=== PATIENT | male | born 1960 | race Caucasian/White ===

== ENCOUNTER 2021-08-30 02:09 | Emergency (ER) | payer MEDICARE, OTHER, SELFPAY ==
[2021-08-30 02:16] VITALS: BP 165/81; PULSE 61; RESP 16; TEMP 35.8; O2SAT 100
[2021-08-30] MEDS: diazePAM (*CRX) 5 MG TABLET PO (03:22)
[2021-08-30 03:39] LABS: Basophils Absolute Auto 0.1 K/mm3 (0.0-0.1); Basophils Percent Auto 1.5 % (0.2-1.2); Eosinophils Percent Auto 0.4 % (0-4.4); Hematocrit 42.8 % (42.0-52.0); Hemoglobin 14.9 g/dL (14.0-18.0); Immature Granulocyte Absolute 0.04 K/mm3 (0.00-0.031); Immature Granulocyte Percent A 0.6 % (0-0.5); Immature Platelet Fraction Pct 7.3 % (0.9-11.2); Lymphocytes Absolute Auto 0.71 K/mm3 (0.9-3.2); Lymphocytes Percent Auto 10.5 % (18.3-44.2); Mean Corpuscular HGB Conc 34.8 g/dl (32-36); Mean Corpuscular Hemoglobin 32.3 pg (26-34); Mean Corpuscular Volume 92.6 fl (80-100); Mean Platelet Volume 11.2 fl (7.4-10.4); Monocytes Absolute Auto 0.8 K/mm3 (0.1-0.6); Monocytes Percent Auto 12.5 % (2.6-8.5); Neutrophils Percent Auto 74.5 % (45.5-73.1); Platelet Count Result 129 k/mm3 (150-375); Red Blood Count 4.62 M/mm3 (4.6-6.20); Red Cell Distribution Width 13.5 % (11.5-14.5); White Blood Count 6.7 K/mm3 (4.5-10.0)
[2021-08-30 03:42] LABS: Anion Gap 6 mmol/L (8-16); Blood Urea Nitrogen 16 mg/dL (9-20); Calcium 8.7 mg/dL (8.4-10.2); Carbon Dioxide 25 mmol/L (22-30); Chloride 104 mmol/L (98-107); Estimated CRCL calculation 80 ml/min; Estimated Glomerular Filt Rate > 60; Glucose 166 mg/dL (65-110); Magnesium 1.9 mg/dL (1.6-2.3); Potassium 3.8 mmol/L (3.4-5.0); Sodium 135 mmol/L (137-145)
[2021-08-30 04:20] VITALS: BP 152/85; PULSE 67; RESP 18; O2SAT 100
--- NOTE | 2021-08-30 04:23 | ED.NECK ---
HPI - Neck Pain/Injury General Chief Complaint: Neck Pain/Injury Stated Complaint: neck pain Time Seen by Provider: 08/30/21 02:24 History of Present Illness HPI Narrative: 61yoM h/o MM p/w L neck pain when he woke up this AM, pain with movement of neck. Only took some tylenol at home this AM complaint: neck pain Place: home Quality: dull Duration: constant Relieving factors: medication OTC/prescribed Exacerbating factors: movement of neck Associated symptoms: none Treatments prior to arrival: acetaminophen Related Data Home Medications Medication Instructions Recorded Confirmed gabapentin 600 mg tablet 600 mg PO BID 02/14/19 03/21/21 lenalidomide 10 mg capsule 10 mg PO DAILY 02/14/19 03/21/21 cholestyramine-aspartame 4 gram PO DAILY g 09/14/20 03/21/21 oral powder wepqfadk-lun-clbny acid 300 1 tablet PO DAILY 09/14/20 03/21/21 mcg-lycopene 600 mcg-lutein 300 mcg tablet Allergies Allergy/AdvReac Type Severity Reaction Status Date / Time No Known Drug Allergies Allergy Unknown Unknown Verified 03/21/21 09:29 Review of Systems Review of Systems: All systems reviewed & are unremarkable except as noted in HPI and below PMFSH Past Medical History Medical History (Updated 08/30/21 @ 05:18 by Talia Moss MD) Multiple myeloma Screening for colon cancer Family History Family History Father Patient's father is in good health Sibling Patient's brother is in good health Family history of elevated blood lipids Mother Acute myocardial infarction, Onset Age: 72 Patient's mother is Social History Social History Smoking status: Former smoker Tobacco type: cigars Second hand tobacco smoke exposure: Yes Smoking end date: 04/20/09 Alcohol intake: former Exam Narrative: EXAMINATION OF ORGAN SYSTEMS/BODY AREAS: Constitutional: Vital signs per nursing GENERAL:[No acute distress, non-toxic appearing.] HEAD: Normal with no signs of head trauma. EYES: EOMI, conjunctiva normal NECK: TTP L SCM, no swelling/TTP around IJ , pain with rotating right LUNGS: Nonlabored breathing. HEART: [Regular rate and rhythm] ABD: Nondistended EXT: Normal range of motion, no swelling SKIN: [No rashes or lesions.] NEURO: [Alert and oriented x 3. No gross focal sensory or strength deficits.] PSYCH: Normal affect Course Course Emergency Course: 61-year-old male with history of multiple myeloma presents with left-sided neck pain when he woke up this morning, vital signs stable, exam shows tenderness palpation of the left neck and pain on rotation, differential includes most likely muscle spasm from sleeping on it wrong versus very unlikely DVT without any swelling or tenderness around the veins of his upper extremity or neck, and electrolyte abnormalities. Labs are normal, patient is given Valium for muscle spasm, on reevaluation he is feeling much better, range of motion is improved, he is stable for discharge home with follow-up with his primary care doctor and he is given a prescription for muscle relaxants. He can return for any further issues. Vital Signs Vital signs: Vital Signs Temperature 96.5 F L 08/30/21 02:16 Pulse Rate 61 08/30/21 02:16 Respiratory Rate 16 08/30/21 02:16 Blood Pressure 165/81 H 08/30/21 02:16 Pulse Oximetry 100 08/30/21 02:16 Temperature 96.5 F L 08/30/21 02:16 Pulse Rate 67 08/30/21 04:20 Respiratory Rate 18 08/30/21 04:20 Blood Pressure 152/85 H 08/30/21 04:20 Pulse Oximetry 100 08/30/21 04:20 MDM - Neck Pain/Injury Lab Data Result diagrams: 08/30/21 03:27 08/30/21 03:27 Labs: Lab Results 08/30/21 08/30/21 Range/Units 03:27 03:27 WBC 6.7 (4.5-10.0) K/mm3 RBC 4.62 (4.6-6.20) M/mm3 Hgb 14.9 (14.0-18.0) g/dL Hct 42.8 (42.0-52.0) % MCV 92.6 (80-100) fl MCH 32.3 (2
== END 2021-08-30 04:20 | disposition home or self-care (01) ==
PROVIDERS: Emergency Provider Emergency Medicine; PCP Internal Medicine
DX: M62.838 Other muscle spasm (principal); S16.1XXA Strain of muscle, fascia and tendon at neck level, initial encounter; C90.00 Multiple myeloma not having achieved remission; Z87.891 Personal history of nicotine dependence; X58.XXXA Exposure to other specified factors, initial encounter
CPT/HCPCS: 36415; 80048; 83735; 85025; 85055; 99283; A9270

== ENCOUNTER 2021-11-30 16:31 | Inpatient (IN) | payer MEDICARE, OTHER, SELFPAY ==
[2021-11-30] VITALS (23 sets, daily range): BP systolic 86–112; BP diastolic 53–91; PULSE 66–100; RESP 13–27; TEMP 36–36.8; O2SAT 94–98; BMI 31.6; BMI 31.4
--- NOTE | ~2021-11-30 | US_ITS ---
EXAMINATION: US venous doppler [facility] DATE: 12/04/2021 15:18 INDICATION: Lower limb edema. TECHNIQUE: Grayscale ultrasound images without and with compression and Doppler ultrasound images of the bilateral lower extremity veins were obtained. COMPARISON: None. FINDINGS: The visualized portions of right common femoral vein, profunda (deep) femoral vein, femoral vein, pop liteal vein, peroneal veins, posterior tibial veins, and greater saphenous vein outflow are patent. The visualized portions of left common femoral vein, profunda femoral vein, femoral vein, popliteal v ein, peroneal veins, posterior tibial veins, and greater saphenous vein outflow are patent. IMPRESSION: 1. No deep venous thrombosis. Reviewed, dictated and finalized at location A.
--- NOTE | ~2021-11-30 | CT_ITS ---
EXAMINATION: CT abdomen pelvis w con DATE: 11/30/2021 18:42 INDICATION: Nausea, vomiting with diarrhea. TECHNIQUE: Computed tomography (CT) of the abdomen and pelvis was performed with 100 cc Omnipaque 350 intravenous contrast. The dose-length product was 666.92 mGy-cm. Automated exposure control and iter ative reconstruction technique were employed. COMPARISON: None. FINDINGS: Heart size normal. There is dependent atelectasis. Trace right pleural effusion. Heart size normal. Small amount of ascites. There is diffuse abnormal thickening of the colon and rectum, most severe at the cecum, consistent with severe colitis, most likely infectious. There is ascites. There is mild bladder wall thickening, possibly due to underdistention. No small bowel dilation. The liver, spleen, pancreas, adrenal glands and right kidney are unremarkable. There is a small cyst of the left kidney. There are gallstones. There are mottled lytic lesions throughout the spine, ribs, pelvis and sacrum, suspicious for metastatic disease versus myeloma. IMPRESSION: 1. Diffuse severe thickening of the colon with mucosal edema/enhancement, consistent with colitis, mo st likely infectious. 2: Trace right pleural effusion. Small amount of ascites. 3: Innumerable lytic lesions throughout the visualized osseous structures, suspicious for metastatic disease versus myeloma. Correlate for history of malignancy. 4: Cholelithiasis. Reviewed, dictated and finalized at location A. IMPRESSION: 1. Diffuse severe thickening of the colon with mucosal edema/enhancement, consi stent with colitis, most likely infectious. 2: Trace right pleural effusion. Small amount of ascites. 3: Innumerable lytic lesions throughout the visualized osseous structures, susp icious for metastatic disease versus myeloma. Correlate for history of malignan cy. 4: Cholelithiasis.
[2021-11-30 17:50] LABS: Basophils Absolute Auto 0.1 K/mm3 (0.0-0.1); Basophils Percent Auto 0.3 % (0.2-1.2); Eosinophils Absolute Auto 0.5 K/mm3 (0-0.3); Eosinophils Percent Auto 3.6 % (0-4.4); Hematocrit 50.4 % (42.0-52.0); Hemoglobin 17.6 g/dL (14.0-18.0); Immature Granulocyte Absolute 0.13 K/mm3 (0.00-0.031); Immature Granulocyte Percent A 0.9 % (0-0.5); Lymphocytes Absolute Auto 0.63 K/mm3 (0.9-3.2); Lymphocytes Percent Auto 4.3 % (18.3-44.2); Mean Corpuscular HGB Conc 34.9 g/dl (32-36); Mean Corpuscular Hemoglobin 31.3 pg (26-34); Mean Corpuscular Volume 89.7 fl (80-100); Mean Platelet Volume 10.7 fl (7.4-10.4); Monocytes Absolute Auto 2.2 K/mm3 (0.1-0.6); Monocytes Percent Auto 15.1 % (2.6-8.5); Neutrophils Percent Auto 75.8 % (45.5-73.1); Platelet Count Result 204 k/mm3 (150-375); Red Blood Count 5.62 M/mm3 (4.6-6.20); Red Cell Distribution Width 13.2 % (11.5-14.5); White Blood Count 14.5 K/mm3 (4.5-10.0)
--- NOTE | 2021-11-30 17:50 | ED.NAVMDI ---
HPI - Nausea/Vomiting/Diarrhea General Chief complaint: Nausea/Vomiting/Diarrhea Stated complaint: diarrhea, vomiting, chills Time Seen by Provider: 11/30/21 17:46 Source: patient Mode of arrival: ambulatory Limitations: no limitations History of Present Illness HPI Narrative: 61 years old white female presented to the ED with right lower quadrant pain and diarrhea started 10 days ago. History of multiple myeloma, patient also complaining of nausea and vomiting once yesterday and another 1 today. Plus chills and clammy skin. Patient is not vaccinated for COVID because he does not believe in it Related Data Home Medications Medication Instructions Recorded Confirmed gabapentin 600 mg tablet 600 mg PO BID 02/14/19 03/21/21 lenalidomide 10 mg capsule 10 mg PO DAILY 02/14/19 03/21/21 (Revlimid) cholestyramine-aspartame 4 gram PO DAILY 09/14/20 03/21/21 oral powder vzesfmqk-mwz-ueaua acid 300 1 tablet PO DAILY 09/14/20 03/21/21 mcg-lycopene 600 mcg-lutein 300 mcg tablet (Centrum Silver Men) Allergies Allergy/AdvReac Type Severity Reaction Status Date / Time No Known Drug Allergies Allergy Unknown Unknown Verified 09/05/21 14:04 Review of Systems Review of Systems: All systems reviewed & are unremarkable except as noted in HPI and below PMFSH Past Medical History Medical History Multiple myeloma Screening for colon cancer Family History Family History Father Patient's father is in good health Sibling Patient's brother is in good health Family history of elevated blood lipids Mother Acute myocardial infarction, Onset Age: 72 Patient's mother is Social History Social History Smoking status: Former smoker Tobacco type: cigars Second hand tobacco smoke exposure: Yes Smoking end date: 04/20/09 Alcohol intake: former Exam Narrative: General appearance: Well-developed, well-nourished Skin: Normal color Head: Normocephalic, nontraumatic Eyes: Clear conjunctiva ENT: Oropharynx normal, ears normal, nose normal Neck: Supple, nontender Chest and respiratory: Airway patent, no respiratory distress, no accessory muscle use Heart: Regular rate/rhythm Abdomen: Soft, right lower quadrant tenderness, hyperactive bowel sounds no organomegaly, quiet bowel sounds Vascular: Normal peripheral pulses, normal capillary refill. Musculoskeletal: Normal range of motion, nontender back Neurologic: Alert and oriented ?3, IMMUNOLOGY SPECIALIST is normal as tested, no gross motor deficit Course Vital Signs Vital signs: Vital Signs Temperature 36.8 C 11/30/21 16:33 Pulse Rate 95 11/30/21 16:33 Respiratory Rate 14 11/30/21 16:33 Blood Pressure 96/79 L 11/30/21 16:33 Pulse Oximetry 97 11/30/21 16:33 Oxygen Delivery Room Air 11/30/21 16:33 Temperature 36.8 C 11/30/21 16:33 Pulse Rate 90 11/30/21 17:48 Respiratory Rate 21 H 11/30/21 17:48 Blood Pressure 104/91 H 11/30/21 17:47 Pulse Oximetry 95 11/30/21 17:45 Oxygen Delivery Room Air 11/30/21 16:33 MDM - Nausea/Vomiting/Diarrhea Differential Diagnosis Differential diagnosis: Likely clostridium difficile infection and dehydration Lab Data Result diagrams: 11/30/21 17:42 11/30/21 17:43 Labs: Lab Results 11/30/21 11/30/21 Range/Units 17:42 17:43 WBC Pending RBC Pending Hgb Pending Hct Pending MCV Pending MCH Pending MCHC Pending RDW Pending Plt Count Pending MPV Pending Immature Gran % (Auto)
[2021-11-30 17:59] LABS: Alanine Aminotransferase 37 U/L (6-50); Albumin Level 3.9 g/dL (3.5-5.1); Alkaline Phosphatase 97 U/L (38-126); Anion Gap 12 mmol/L (8-16); Aspartate Amino Transferase 30 U/L (17-59); Bilirubin,Total 1.5 mg/dL (0.2-1.3); Blood Urea Nitrogen 22 mg/dL (9-20); Calcium 8.8 mg/dL (8.4-10.2); Carbon Dioxide 30 mmol/L (22-30); Chloride 89 mmol/L (98-107); Estimated CRCL calculation 42 ml/min; Estimated Glomerular Filt Rate 41; Glucose 192 mg/dL (65-110); Lipase 31 U/L (23-300); Potassium 3.1 mmol/L (3.4-5.0); Sodium 131 mmol/L (137-145)
[2021-11-30 17:59] LABS: Platelet Estimate Adequate (Adequate)
[2021-11-30 18:00] LABS: Ovalocytes 1+ (NORMAL)
[2021-11-30 18:01] LABS: Appearance Urine Clear (Clear); Bilirubin Urine Negative (Negative); Color Urine Yellow (Yellow); Glucose Urine UA Trace mg/dL (Negative); Ketones Urine Negative (Negative); Leukocyte Esterase Ur Negative LEU/UL (Negative); Nitrate Urine Negative (Negative); Protein Urine 1+ mg/dL (Negative); Urobilinogen Urine 0.2 mg/dL (<2.0); pH Urine 5.5 (5.0-9.0)
[2021-11-30 18:03] LABS: Add Urine Microscopic? YES; Blood Urine Trace-Intact (Negative)
[2021-11-30 18:05] LABS: Mucus Urine Rare /lpf; RBC Urine 0-2 /hpf (0-2); WBC Urine 0-3 /hpf
[2021-11-30] MEDS: ONDANSETRON INJ 4 MG/2 ML VIAL IV PUSH (19:00)
[2021-11-30] MEDS: MORPHINE SULFATE (*CRX) 4 MG/ML INJ IV PUSH (19:00)
[2021-11-30] MEDS: SODIUM CHLORIDE 0.9% IV 1,000 ML 999 ML IV CONT ×3 (19:02→20:20)
[2021-11-30 19:49] LABS: SARS-CoV-2 RNA PCR Negative
--- NOTE | 2021-11-30 20:03 | PM.IMHP ---
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 patient had been in to see his oncologist secondary to this he was stopped on immunosuppressant therapy and prescribed Imodium. However diarrhea continue patient has had a chills generalized malaise muscle aches and pains abdominal pain and bloating. Patient denies any cough, sputum production, any nausea, vomiting. preliminary workup was significant for CT of abdomen and pelvis: 1. Diffuse severe thickening of the colon with mucosal edema/enhancement, consistent with colitis, most likely infectious. 2:? Trace right pleural effusion. Small amount of ascites. 3: Innumerable lytic lesions throughout the visualized osseous structures, suspicious for metastatic disease versus myeloma. Correlate for history of malignancy. 4:? Cholelithiasis. chemistry panel was significant for sodium 131 potassium 3.1 chloride 86 creatinine 1.7 BUN 22 serology patient tested positive for C difficile and tested negative for COVID-19 Review of Systems Review of Systems: diarrhea for several days, abdominal bloating, muscle aches and pains, generalized malaise. Constitutional: Constitutional: Reports body ache(s), Reports chills, Reports fatigue, Denies fever(s), Reports lethargy, Reports malaise, Denies night sweats and Reports weakness Eyes: Eyes: Denies change in vision ENT: Denies dysphagia, Denies vertigo, Denies dizziness and Denies odynophagia Cardiovascular: Cardiovascular: Denies chest pain, Denies syncope, Denies pedal edema, Denies irregular heart rhythm, Denies lightheadedness, Denies palpitations and Denies dyspnea on exertion Respiratory: Respiratory: Denies chest congestion, Denies cough, Denies excessive phlegm production and Denies pain on inspiration Gastrointestinal: Gastrointestinal: Reports abdominal pain, Reports bloating, Denies dyspepsia, Denies heartburn, Reports diarrhea, Denies nausea and Denies vomiting Genitourinary: Genitourinary: Denies dysuria Musculoskeletal: Musculoskeletal: Denies back pain, Reports myalgias, Denies arthralgias and Denies joint swelling Integumentary/Breasts: Skin/Breast: Denies rash Neurologic: Denies focal weakness and Denies Sensory deficit (Neuro) Psychiatric: Psychiatric: Reports no additional psychiatric complaints and Reports as per HPI Endocrine: Endocrine: Denies cold intolerance, Denies fatigue, Denies flushing, Denies heat intolerance, Denies polyphagia, Denies polydipsia and Denies palpitations Hematologic/Lymphatic: Hematologic/Lymphatic: Reports no additional hematologic/lymphatic complaints and Reports as per HPI Allergic/Immunologic: Allergic/Immunologic: Reports no additional allergic/immunologic complaints and Reports as per HPI PMFSH Past Medical History Medical History Multiple myeloma Screening for colon cancer Family History Family History Father Patient's father is in good health Sibling Patient's brother is in good health Family history of elevated blood lipids Mother Acute myocardial infarction, Onset Age: 72 Patient's mother is Social History Social History Smoking status: Never smoker Tobacco type: cigars Second hand tobacco smoke exposure: No Smoking end date: 04/20/09 Alcohol intake: never Substance use: never Substance use type: does not use Spiritual care concerns: No Meds Home Medications and Allergies Home Medications Medication Instructions Recorded Confirmed Type jose
--- NOTE | 2021-11-30 20:17 | ECG_ITS ---
Measurements Intervals [place] Rate: 74 P: 47 [place]: 133 QRS: -36 QRSD: 106 T: 36 QT: 376 QTc: 420 Interpretive Statements SINUS RHYTHM WITH FREQUENT SUPRAVENTRICULAR PREMATURE COMPLEXES LEFT AXIS DEVIATION LOW QRS VOLTAGE IN PRECORDIAL LEADS PATTERN CONSISTENT WITH PULMONARY DISEASE MODERATE VOLTAGE CRITERIA FOR LVH, CONSIDER NORMAL VARIANT ABNORMAL ECG NO PREVIOUS ECG AVAILABLE FOR COMPARISON Electronically Signed On 12-01-2021 14:33:35 CDT by Denny Chahal M.D.
[2021-11-30 21:39] LABS: INR 1.2; Partial Thromboplastin Time 27.2 SECONDS (22.3-36.8)
[2021-11-30 21:42] LABS: Lactic Acid Reflex 1.1 mmol/L (0.7-2.0)
[2021-11-30 21:45] LABS: CRP 8.2 mg/dL (<1.0)
[2021-11-30] MEDS: SODIUM CHLORIDE 0.9% IV 1,000 ML 150 ML IV CONT (21:54)
[2021-11-30 23:45] LABS: IFOB Positive Control Positive; Immunochemical Fecal Occult Bl Positive (N)
[2021-12-01] VITALS: BP 105/70; PULSE 77; RESP 18; TEMP 35.8; O2SAT 97
[2021-12-01 00:27] LABS: Toxigenic C. Diff POSITIVE (NEGATIVE)
[2021-12-01] MEDS: metroNIDAZOLE 500 MG/ISO 100ML 500 MG/100 ML BAG 100 MG IVPB ×3 (00:43→17:27)
[2021-12-01 04:00] VITALS: BP 99/58; PULSE 65; RESP 18; TEMP 36.1; O2SAT 97
[2021-12-01 06:23] LABS: Hematocrit 44.6 % (42.0-52.0); Hemoglobin 15.1 g/dL (14.0-18.0); Mean Corpuscular HGB Conc 33.9 g/dl (32-36); Mean Corpuscular Hemoglobin 31.5 pg (26-34); Mean Corpuscular Volume 93.1 fl (80-100); Mean Platelet Volume 10.6 fl (7.4-10.4); Platelet Count Result 134 k/mm3 (150-375); Red Blood Count 4.79 M/mm3 (4.6-6.20); Red Cell Distribution Width 13.3 % (11.5-14.5); White Blood Count 10.6 K/mm3 (4.5-10.0)
[2021-12-01 06:29] LABS: Anion Gap 9 mmol/L (8-16); Blood Urea Nitrogen 19 mg/dL (9-20); Calcium 7.3 mg/dL (8.4-10.2); Carbon Dioxide 23 mmol/L (22-30); Chloride 101 mmol/L (98-107); Estimated CRCL calculation 58 ml/min; Estimated Glomerular Filt Rate > 60; Glucose 140 mg/dL (65-110); Potassium 2.9 mmol/L (3.4-5.0); Sodium 133 mmol/L (137-145)
[2021-12-01] MEDS: SODIUM CHLORIDE 0.9% IV 1,000 ML 150 ML IV CONT ×3 (07:36→22:18)
[2021-12-01 08:03] LABS: Band Neutrophils Percent 12 % (0-6); Lymphocytes Absolute Manual 0.42 K/mm3 (1.1-4.5); Monocytes Absolute Manual 1.27 K/mm3 (0.1-0.90); Monocytes Percent Manual 12 % (3-9); Neutrophils Percent Manual 72 % (46-73); Total Cells Counted 100
[2021-12-01 08:04] LABS: Platelet Estimate Adequate (Adequate)
[2021-12-01 08:23] VITALS: O2SAT 97
[2021-12-01] MEDS: CHOLESTYRAMINE LIGHT 4 GM POWD.PACK PO (08:35)
[2021-12-01] MEDS: ATORVASTATIN 20 MG TABLET BY MOUTH (08:35)
[2021-12-01] MEDS: POTASSIUM CHLORIDE 20 MEQ TABLET.ER 40 MEQ PO ×2 (08:35→17:28)
[2021-12-01] MEDS: OPTI-GEN TAB 1 TABLET PO (08:36)
[2021-12-01] MEDS: GABAPENTIN 300 MG CAPSULE 600 MG PO ×2 (08:36→17:27)
--- NOTE | 2021-12-01 08:59 | PM.IMPN ---
Progress Note: A&P Assessment and Plan (1) C. difficile colitis: Code(s): A04.72 - Enterocolitis due to Clostridium difficile, not specified as recurrent Status: Acute (2) Diarrhea: Code(s): R19.7 - Diarrhea, unspecified Status: Acute (3) Colitis: Code(s): K52.9 - Noninfective gastroenteritis and colitis, unspecified Status: Acute (4) Acute hyponatremia: Code(s): E87.1 - Hypo-osmolality and hyponatremia Status: Acute (5) Acute hypokalemia: Code(s): E87.6 - Hypokalemia Status: Acute (6) GUSTABO (acute kidney injury): Code(s): N17.9 - Acute kidney failure, unspecified Status: Acute (7) Hx of multiple myeloma: Code(s): Z85.79 - Personal history of other malignant neoplasms of lymphoid, hematopoietic and related tissues Status: Acute (8) Hyperlipidemia, unspecified: Code(s): E78.5 - Hyperlipidemia, unspecified Status: Acute (9) Essential (primary) hypertension: Code(s): I10 - Essential (primary) hypertension Status: Acute (10) Body mass index (bmi) 32.0-32.9, adult: Onset Date: 03/03/18 Code(s): Z68.32 - Body mass index [BMI] 32.0-32.9, adult Status: Acute (11) Benign prostatic hyperplasia without lower urinary tract symptoms: Code(s): N40.0 - Benign prostatic hyperplasia without lower urinary tract symptoms Status: Acute Plan 11/30/21 ?C difficile colitis ?patient was started on Flagyl ?will continue levofloxacin ?continue to monitor ?likely secondary to GI losses ?getting IV fluids ?repeat BMP in a.m. ?likely to be pre renal azotemia ?follow-up in outpatient setting ?resume home meds as needed ?supportive care 12/01/21 immunocompromised receiving tx from oncology at present flagyl/vanco dc levaquin NS 150cc hr dc regular diet start CLD until symptoms improve serial abd exams pain control cont to hold BP meds (Losartan 100mg and HCTZ 25mg) pt low normotensive close monitoring Subjective Date/time seen: 12/01/21 08:59 Patient lying in bed his is at bedside. We review plan of care anticipated length of stay. Patient has ongoing right lower quadrant pain and diarrhea. He denies nausea vomiting. He is tolerating clear liquid diet. Review of Systems Review of Systems: All systems reviewed & are unremarkable except as noted in HPI and below Exam Narrative: GEN: NAD, AAOx3, cooperative HEENT: NCAT, MMM, EOMI Neck: no JVD Heart: S1S2 RRR Lungs: CTA B/l Abd: soft, TTP RLQ, ND, bowel sounds normoactive Ext: moves all, no cyanosis, no clubbing, no edema Neuro: Cranial nerves intact normal cognition no focal neurological deficits appreciated Psych: mood and affect congruent Objective Data Vital Signs Vital Signs: Vital Signs - 24 hr 11/30/21 16:33 11/30/21 17:41 11/30/21 17:45 Temperature 98.2 F Pulse Rate 95 86 86 Respiratory Rate 14 17 24 H Blood Pressure 96/79 L 93/66 L Pulse Oximetry 97 95 95 Oxygen Delivery Room Air 11/30/21 17:47 11/30/21 17:48 11/30/21 20:10 Temperature Pulse Rate 100 90 Respiratory Rate 27 H 21 H Blood Pressure 104/91 H 86/58 L Pulse Oximetry Oxygen Delivery 11/30/21 18:22 11/30/21 18:30 11/30/21 18:45 Temperature Pulse Rate 78 78 76 Respiratory Rate 19 24 H 13 Blood Pressure Pulse Oximetry Oxygen Delivery 11/30/21 19:01 11/30/21 19:10 11/30/21 19:15 Temperature Pulse Rate 76 72 70 Respiratory Rate 22 H 16 13 Blood Pressure 88/57 L Pulse Oximetry 94 94 Oxygen Delivery 11/30/21 19:16 11/30/21 19:31 11/30/21 19:32 Temperature Pulse Rate 72 66 68 Respiratory Rate 16 19 17 Blood Pressure 93/55 L 97/53 L Pulse Oximetry 94 96 96 Oxygen Delivery 11/30/21 20:14 11/30/21 20:17 11/30/21 20:47 Temperature Pulse Rate 72 68 Respiratory Rate 14 15 Blood Pressure 110/56 L Pulse Oximetry 98 95 Oxygen Delivery 11/30/21 20:30
[2021-12-01] MEDS: VANCOMYCIN ORAL 125 MG/2.5 ML SYRUP PO ×2 (12:01→17:27)
[2021-12-01 14:00] VITALS: BP 122/65; PULSE 72; RESP 16; TEMP 36.2; O2SAT 100
[2021-12-01] MEDS: SACCHAROMYCES BOULARDII 250 MG CAPSULE PO (17:29)
[2021-12-01 22:00] VITALS: BP 125/60; PULSE 70; RESP 18; TEMP 37; O2SAT 97
[2021-12-02] MEDS: metroNIDAZOLE 500 MG/ISO 100ML 500 MG/100 ML BAG 100 MG IVPB (00:25)
[2021-12-02] MEDS: VANCOMYCIN ORAL 125 MG/2.5 ML SYRUP PO ×4 (00:25→17:16)
[2021-12-02] MEDS: SODIUM CHLORIDE 0.9% IV 1,000 ML 150 ML IV CONT ×2 (05:49→12:18)
[2021-12-02 06:00] VITALS: BP 111/61; PULSE 81; RESP 18; TEMP 36.8; O2SAT 93
[2021-12-02 06:30] LABS: Basophils Absolute Auto 0.1 K/mm3 (0.0-0.1); Basophils Percent Auto 0.8 % (0.2-1.2); Eosinophils Percent Auto 0.3 % (0-4.4); Hematocrit 39.4 % (42.0-52.0); Hemoglobin 13.6 g/dL (14.0-18.0); Immature Granulocyte Absolute 0.06 K/mm3 (0.00-0.031); Immature Granulocyte Percent A 0.6 % (0-0.5); Lymphocytes Absolute Auto 0.52 K/mm3 (0.9-3.2); Lymphocytes Percent Auto 5.3 % (18.3-44.2); Mean Corpuscular HGB Conc 34.5 g/dl (32-36); Mean Corpuscular Hemoglobin 31.4 pg (26-34); Mean Platelet Volume 10.8 fl (7.4-10.4); Monocytes Absolute Auto 1.6 K/mm3 (0.1-0.6); Monocytes Percent Auto 16.6 % (2.6-8.5); Neutrophils Absolute Auto 7.6 K/mm3 (1.3-6.7); Neutrophils Percent Auto 76.4 % (45.5-73.1); Platelet Count Result 146 k/mm3 (150-375); Red Blood Count 4.33 M/mm3 (4.6-6.20); Red Cell Distribution Width 13.2 % (11.5-14.5); White Blood Count 9.9 K/mm3 (4.5-10.0)
[2021-12-02 06:46] LABS: Alanine Aminotransferase 23 U/L (6-50); Albumin Level 2.3 g/dL (3.5-5.1); Alkaline Phosphatase 73 U/L (38-126); Anion Gap 4 mmol/L (8-16); Aspartate Amino Transferase 21 U/L (17-59); Bilirubin,Total 0.6 mg/dL (0.2-1.3); Blood Urea Nitrogen 13 mg/dL (9-20); CRP 7.8 mg/dL (<1.0); Calcium 6.9 mg/dL (8.4-10.2); Carbon Dioxide 28 mmol/L (22-30); Chloride 104 mmol/L (98-107); Estimated CRCL calculation 64 ml/min; Estimated Glomerular Filt Rate > 60; Glucose 140 mg/dL (65-110); Potassium 2.8 mmol/L (3.4-5.0); Sodium 136 mmol/L (137-145)
[2021-12-02] MEDS: GABAPENTIN 300 MG CAPSULE 600 MG PO ×2 (09:09→17:16)
[2021-12-02] MEDS: ATORVASTATIN 20 MG TABLET BY MOUTH (09:09)
[2021-12-02] MEDS: POTASSIUM CHLORIDE 20 MEQ TABLET 40 MEQ PO (09:09)
[2021-12-02] MEDS: OPTI-GEN TAB 1 TABLET PO (09:09)
[2021-12-02] MEDS: SACCHAROMYCES BOULARDII 250 MG CAPSULE PO ×2 (09:09→17:16)
[2021-12-02] MEDS: CHOLESTYRAMINE LIGHT 4 GM POWD.PACK PO (09:09)
[2021-12-02] MEDS: POTASSIUM CHLORIDE 20 MEQ TABLET.ER 40 MEQ PO ×2 (09:10→17:16)
[2021-12-02] MEDS: SODIUM CHLORIDE 0.9% IV 1,000 ML 70 ML IV CONT (13:31)
[2021-12-02 14:00] VITALS: BP 150/75; PULSE 61; RESP 18; TEMP 36.7; O2SAT 98
--- NOTE | 2021-12-02 15:17 | PM.IMPN ---
Progress Note: A&P Assessment and Plan (1) C. difficile colitis: Code(s): A04.72 - Enterocolitis due to Clostridium difficile, not specified as recurrent Status: Acute (2) Diarrhea: Code(s): R19.7 - Diarrhea, unspecified Status: Acute (3) Colitis: Code(s): K52.9 - Noninfective gastroenteritis and colitis, unspecified Status: Acute (4) Acute hyponatremia: Code(s): E87.1 - Hypo-osmolality and hyponatremia Status: Acute (5) Acute hypokalemia: Code(s): E87.6 - Hypokalemia Status: Acute (6) GUSTABO (acute kidney injury): Code(s): N17.9 - Acute kidney failure, unspecified Status: Acute (7) Hx of multiple myeloma: Code(s): Z85.79 - Personal history of other malignant neoplasms of lymphoid, hematopoietic and related tissues Status: Acute (8) Hyperlipidemia, unspecified: Code(s): E78.5 - Hyperlipidemia, unspecified Status: Acute (9) Essential (primary) hypertension: Code(s): I10 - Essential (primary) hypertension Status: Acute (10) Body mass index (bmi) 32.0-32.9, adult: Onset Date: 03/03/18 Code(s): Z68.32 - Body mass index [BMI] 32.0-32.9, adult Status: Acute (11) Benign prostatic hyperplasia without lower urinary tract symptoms: Code(s): N40.0 - Benign prostatic hyperplasia without lower urinary tract symptoms Status: Acute Plan 11/30/21 ?C difficile colitis ?patient was started on Flagyl ?will continue levofloxacin ?continue to monitor ?likely secondary to GI losses ?getting IV fluids ?repeat BMP in a.m. ?likely to be pre renal azotemia ?follow-up in outpatient setting ?resume home meds as needed ?supportive care 12/01/21 immunocompromised receiving tx from oncology at present flagyl/vanco dc levaquin NS 150cc hr dc regular diet start CLD until symptoms improve serial abd exams pain control cont to hold BP meds (Losartan 100mg and HCTZ 25mg) pt low normotensive close monitoring 12/02/21 pt improving vanco PO dc IVFs restart home Losartan half dose advance diet tomorrow if abd pain resolved and diarrhea improved Subjective Date/time seen: 12/02/21 15:17 doing ok still w diarrhea abd pain improving Review of Systems Review of Systems: All systems reviewed & are unremarkable except as noted in HPI and below Exam Narrative: GEN: NAD, AAOx3, cooperative HEENT: NCAT, MMM, EOMI Neck: no JVD Heart: S1S2 RRR Lungs: CTA B/l Abd: soft, TTP RLQ, ND, bowel sounds normoactive Ext: moves all, no cyanosis, no clubbing, no edema Neuro: Cranial nerves intact normal cognition no focal neurological deficits appreciated Psych: mood and affect congruent Objective Data Vital Signs Vital Signs: Vital Signs - 24 hr 12/01/21 22:00 12/02/21 06:00 12/02/21 14:00 Temperature 98.6 F 98.3 F 98.0 F Pulse Rate 70 81 61 Respiratory Rate 18 18 18 Blood Pressure 125/60 111/61 150/75 H Pulse Oximetry 97 93 98 Intake/Output Intake/Output: Intake & Output 11/29/21 11/30/21 12/01/21 12/02/21 23:59 23:59 23:59 23:59 Intake Total 3000 5110 2770 Balance 3000 5110 2770 Meds/Results Medications: Active Medications Generic Name Dose Route Start Last Admin Trade Name Freq PRN Reason Stop Dose Admin Atorvastatin Calcium 20 mg 12/01/21 09:00 12/02/21 09:09 Atorvastatin 20 Mg Tablet BY MOUTH 20 mg DAILY BRAN Administration Cholestyramine Resin 4 gm 12/01/21 09:00 12/02/21 09:09 Cholestyramine Light 4 Gm Powd.Pack PO 4 gm DAILY BRAN Administration Gabapentin 600 mg 11/30/21 22:45 12/02/21 09:09 Gabapentin 300 Mg Capsule PO 600 mg BID BRAN Administration Sodium Chloride 1,000 mls @ 70 mls/hr 12/02/21 13:29 12/02/21 13:31 Normal Saline Iv IV CONT 70 mls/hr .[id number] BRAN Administration Morphine Sulfate 4 mg 11/30/21 19:55 Morphine Sulfate (*Crx) 4 Mg/Ml Inj IV PUSH Q2H PRN Pain Rated 7-10 Mu
[2021-12-02 22:00] VITALS: BP 135/68; PULSE 61; RESP 17; TEMP 37; O2SAT 98
[2021-12-03] MEDS: VANCOMYCIN ORAL 125 MG/2.5 ML SYRUP PO ×4 (00:21→18:27)
[2021-12-03] MEDS: SODIUM CHLORIDE 0.9% IV 1,000 ML 70 ML IV CONT ×2 (02:00→13:35)
[2021-12-03 06:00] VITALS: BP 137/90; PULSE 62; RESP 18; TEMP 36.5; O2SAT 97
[2021-12-03 07:03] LABS: Basophils Absolute Auto 0.1 K/mm3 (0.0-0.1); Basophils Percent Auto 1.4 % (0.2-1.2); Eosinophils Absolute Auto 0.1 K/mm3 (0-0.3); Eosinophils Percent Auto 1.4 % (0-4.4); Hematocrit 41.3 % (42.0-52.0); Hemoglobin 14.2 g/dL (14.0-18.0); Immature Granulocyte Absolute 0.04 K/mm3 (0.00-0.031); Immature Granulocyte Percent A 0.6 % (0-0.5); Mean Corpuscular HGB Conc 34.4 g/dl (32-36); Mean Corpuscular Hemoglobin 30.9 pg (26-34); Mean Platelet Volume 10.9 fl (7.4-10.4); Monocytes Absolute Auto 1.1 K/mm3 (0.1-0.6); Monocytes Percent Auto 15.8 % (2.6-8.5); Neutrophils Percent Auto 70.8 % (45.5-73.1); Platelet Count Result 163 k/mm3 (150-375); Red Blood Count 4.59 M/mm3 (4.6-6.20); Red Cell Distribution Width 13.2 % (11.5-14.5)
[2021-12-03 07:11] LABS: Anion Gap 6 mmol/L (8-16); Blood Urea Nitrogen 11 mg/dL (9-20); Calcium 7.5 mg/dL (8.4-10.2); Carbon Dioxide 25 mmol/L (22-30); Chloride 103 mmol/L (98-107); Estimated CRCL calculation 64 ml/min; Estimated Glomerular Filt Rate > 60; Glucose 141 mg/dL (65-110); Potassium 2.7 mmol/L (3.4-5.0); Sodium 134 mmol/L (137-145)
[2021-12-03] MEDS: CHOLESTYRAMINE LIGHT 4 GM POWD.PACK PO (10:40)
[2021-12-03] MEDS: POTASSIUM CHLORIDE INJ 40 MEQ in SODIUM CHLORIDE 0.9% IV 500 ML 130 MEQ IVPB (10:40)
[2021-12-03] MEDS: SACCHAROMYCES BOULARDII 250 MG CAPSULE PO ×2 (10:40→18:27)
[2021-12-03] MEDS: POTASSIUM CHLORIDE 20 MEQ TABLET.ER 40 MEQ PO ×3 (10:41→18:27)
[2021-12-03] MEDS: GABAPENTIN 300 MG CAPSULE 600 MG PO ×2 (10:41→18:27)
[2021-12-03] MEDS: LOSARTAN POTASSIUM 50 MG TABLET PO (10:41)
[2021-12-03] MEDS: POTASSIUM CHLORIDE 20 MEQ TABLET PO (10:41)
[2021-12-03] MEDS: OPTI-GEN TAB 1 TABLET PO (10:41)
[2021-12-03] MEDS: ATORVASTATIN 20 MG TABLET BY MOUTH (10:42)
--- NOTE | 2021-12-03 13:18 | PM.IMPN ---
Progress Note: A&P Assessment and Plan (1) C. difficile colitis: Code(s): A04.72 - Enterocolitis due to Clostridium difficile, not specified as recurrent Status: Acute (2) Diarrhea: Code(s): R19.7 - Diarrhea, unspecified Status: Acute (3) Colitis: Code(s): K52.9 - Noninfective gastroenteritis and colitis, unspecified Status: Acute (4) Acute hyponatremia: Code(s): E87.1 - Hypo-osmolality and hyponatremia Status: Acute (5) Acute hypokalemia: Code(s): E87.6 - Hypokalemia Status: Acute (6) GUSTABO (acute kidney injury): Code(s): N17.9 - Acute kidney failure, unspecified Status: Acute (7) Hx of multiple myeloma: Code(s): Z85.79 - Personal history of other malignant neoplasms of lymphoid, hematopoietic and related tissues Status: Acute (8) Hyperlipidemia, unspecified: Code(s): E78.5 - Hyperlipidemia, unspecified Status: Acute (9) Essential (primary) hypertension: Code(s): I10 - Essential (primary) hypertension Status: Acute (10) Body mass index (bmi) 32.0-32.9, adult: Onset Date: 03/03/18 Code(s): Z68.32 - Body mass index [BMI] 32.0-32.9, adult Status: Acute (11) Benign prostatic hyperplasia without lower urinary tract symptoms: Code(s): N40.0 - Benign prostatic hyperplasia without lower urinary tract symptoms Status: Acute Plan 11/30/21 ?C difficile colitis ?patient was started on Flagyl ?will continue levofloxacin ?continue to monitor ?likely secondary to GI losses ?getting IV fluids ?repeat BMP in a.m. ?likely to be pre renal azotemia ?follow-up in outpatient setting ?resume home meds as needed ?supportive care 12/01/21 immunocompromised receiving tx from oncology at present flagyl/vanco dc levaquin NS 150cc hr dc regular diet start CLD until symptoms improve serial abd exams pain control cont to hold BP meds (Losartan 100mg and HCTZ 25mg) pt low normotensive close monitoring 12/02/21 pt improving vanco PO dc IVFs restart home Losartan half dose advance diet tomorrow if abd pain resolved and diarrhea improved 12/03/21 61 yo M receiving tx for MM admitted w diarrhea + for C diff started on Flagyl transitioned to PO Vanco 12/01/21. Doing well, pain improving, still w diarrhea. cont vanco advance diet to full liq and advance as tolerated cont IVFs reduce rate replete K c/s was unable to be placed to Dr Calloway, I did call his office and leave him a voicemail requesting that he call his pt or pt's to let them know he is aware of his hospitalization for C diff Subjective Date/time seen: 12/03/21 13:18 pt reports near resolution of RLQ abd pain, he is tolerating CLD and feels hungry requests to have diet advanced. still w diarrhea persisent unchanged since admission; pt is on 48th hour of VAncomycin PO and advised that it is to early to consider this treatment failure. Review of Systems Review of Systems: All systems reviewed & are unremarkable except as noted in HPI and below Exam Narrative: GEN: NAD, AAOx3, cooperative sitting up on side of bed returning from restroom HEENT: NCAT, MMM, EOMI Neck: no JVD Lungs: symmetric chest rise, no use of accessory muscles, aerating well Abd: soft, NTTP, ND Ext: moves all, no cyanosis, no clubbing, no edema Neuro: Cranial nerves intact normal cognition no focal neurological deficits appreciated Psych: mood and affect congruent Objective Data Vital Signs Vital Signs: Vital Signs - 24 hr 12/02/21 14:00 12/02/21 20:00 12/02/21 22:00 Temperature 98.0 F 98.6 F Pulse Rate 61 61 Respiratory Rate 18 17 Blood Pressure 150/75 H 135/68 Pulse Oximetry 98 98 Oxygen Delivery Room Air 12/03/21 06:00 Temperature 97.7 F Pulse Rate 62 Respiratory Rate 18 Blood Pressure 137/90 Pulse Oximetry 97 Oxygen Delivery Intake/Output Intake/Output: Intake & Output 11/30/21 12/01/21 12/02/2112/03
[2021-12-03 14:00] VITALS: BP 130/80; PULSE 97; RESP 16; TEMP 36.3; O2SAT 97
[2021-12-03 22:00] VITALS: BP 121/60; PULSE 56; RESP 16; TEMP 36.4; O2SAT 100
[2021-12-04] MEDS: VANCOMYCIN ORAL 125 MG/2.5 ML SYRUP PO ×4 (00:05→17:28)
[2021-12-04] MEDS: SODIUM CHLORIDE 0.9% IV 1,000 ML 70 ML IV CONT (04:17)
[2021-12-04 06:00] VITALS: BP 148/79; PULSE 57; RESP 16; TEMP 36.1; O2SAT 99
[2021-12-04 06:44] LABS: Basophils Absolute Auto 0.1 K/mm3 (0.0-0.1); Basophils Percent Auto 2.2 % (0.2-1.2); Eosinophils Absolute Auto 0.1 K/mm3 (0-0.3); Eosinophils Percent Auto 1.7 % (0-4.4); Hematocrit 40.3 % (42.0-52.0); Immature Granulocyte Absolute 0.03 K/mm3 (0.00-0.031); Immature Granulocyte Percent A 0.5 % (0-0.5); Lymphocytes Percent Auto 9.3 % (18.3-44.2); Mean Corpuscular HGB Conc 34.7 g/dl (32-36); Mean Corpuscular Hemoglobin 31.5 pg (26-34); Mean Corpuscular Volume 90.6 fl (80-100); Mean Platelet Volume 10.8 fl (7.4-10.4); Monocytes Absolute Auto 1.1 K/mm3 (0.1-0.6); Monocytes Percent Auto 17.5 % (2.6-8.5); Neutrophils Absolute Auto 4.4 K/mm3 (1.3-6.7); Neutrophils Percent Auto 68.8 % (45.5-73.1); Platelet Count Result 169 k/mm3 (150-375); Red Blood Count 4.45 M/mm3 (4.6-6.20); Red Cell Distribution Width 13.2 % (11.5-14.5); White Blood Count 6.4 K/mm3 (4.5-10.0)
[2021-12-04 07:11] LABS: Alanine Aminotransferase 26 U/L (6-50); Albumin Level 2.3 g/dL (3.5-5.1); Alkaline Phosphatase 40 U/L (38-126); Anion Gap 6 mmol/L (8-16); Aspartate Amino Transferase 36 U/L (17-59); Bilirubin,Total 0.7 mg/dL (0.2-1.3); Blood Urea Nitrogen 9 mg/dL (9-20); Calcium 7.6 mg/dL (8.4-10.2); Carbon Dioxide 22 mmol/L (22-30); Chloride 105 mmol/L (98-107); Estimated CRCL calculation 77 ml/min; Estimated Glomerular Filt Rate > 60; Glucose 165 mg/dL (65-110); Magnesium 1.8 mg/dL (1.6-2.3); Potassium 3.1 mmol/L (3.4-5.0); Sodium 133 mmol/L (137-145)
[2021-12-04] MEDS: GABAPENTIN 300 MG CAPSULE 600 MG PO ×2 (09:35→17:28)
[2021-12-04] MEDS: OPTI-GEN TAB 1 TABLET PO (09:35)
[2021-12-04] MEDS: CHOLESTYRAMINE LIGHT 4 GM POWD.PACK PO (09:35)
[2021-12-04] MEDS: ATORVASTATIN 20 MG TABLET BY MOUTH (09:35)
[2021-12-04] MEDS: SACCHAROMYCES BOULARDII 250 MG CAPSULE PO ×2 (09:35→17:29)
[2021-12-04] MEDS: LOSARTAN POTASSIUM 50 MG TABLET PO (09:35)
[2021-12-04] MEDS: POTASSIUM CHLORIDE 20 MEQ TABLET.ER 40 MEQ PO ×2 (12:55→17:28)
--- NOTE | 2021-12-04 13:24 | PM.IMPN ---
Progress Note: A&P Assessment and Plan (1) C. difficile colitis: Code(s): A04.72 - Enterocolitis due to Clostridium difficile, not specified as recurrent Status: Acute (2) Acute hyponatremia: Code(s): E87.1 - Hypo-osmolality and hyponatremia Status: Acute (3) Acute hypokalemia: Code(s): E87.6 - Hypokalemia Status: Acute (4) GUSTABO (acute kidney injury): Code(s): N17.9 - Acute kidney failure, unspecified Status: Acute (5) Hx of multiple myeloma: Code(s): Z85.79 - Personal history of other malignant neoplasms of lymphoid, hematopoietic and related tissues Status: Acute (6) Essential (primary) hypertension: Code(s): I10 - Essential (primary) hypertension Status: Acute (7) Benign prostatic hyperplasia without lower urinary tract symptoms: Code(s): N40.0 - Benign prostatic hyperplasia without lower urinary tract symptoms Status: Acute Plan Patient presents with complaints of diarrhea. CT the abdomen and pelvis shows diffuse severe thickening colon with mucosal edema consistent with colitis is also innumerable lytic lesions throughout the visualized osseous structures suspicious for metastatic disease versus myeloma. Patient does have a history of multiple myeloma. Stool studies were negative except for stools positive for C diff toxin. Currently on vancomycin orally. Still having uncontrolled stool output. Tolerating current diet so will advance to regular diet. No further pain to suggest uncontrolled colitis. White count normal which is also encouraging sign. We will switch to fidaxomicin since higher rates of sustained response and fewer recurrence specially since patient is immunosuppressed. Continue oral Vanco today for double coverage to see if we can get the diarrhea to slow. Check LE doppler since edema and no SCDs. Add Lovenox. Subjective Date/time seen: 12/04/21 13:24 Interval history: 61yo male with MM s/p stem cell transplant on immunosuppressive agents here for diarrhea and found to have CDiff colitis. Assuming care. Chart reviewed. Patient feels better today. No abdominal pain. No melena or hematochezia. Still having liquid stools. He has had 6 so far today. He denies any chest pain or shortness of breath. He is tolerating his full liquid diet without nausea or vomiting. Exam Narrative: AF 96.9 148/79 57 16 99% ra Gen - NARD Chest - CTA bilaterally, nml RR CV - RRR S1/S2 Abd - Soft, NT/ND, Positive BS Ext - trace bilateral pedal edema; negative Homans sign Psych - Nml mood and affect Skin - Warm and dry Objective Data Vital Signs Vital Signs: Vital Signs - 24 hr 12/03/21 14:00 12/03/21 20:00 12/03/21 22:00 Temperature 97.4 F L 97.5 F L Pulse Rate 97 56 L Respiratory Rate 16 16 Blood Pressure 130/80 121/60 Pulse Oximetry 97 100 Oxygen Delivery Room Air 12/04/21 06:00 Temperature 96.9 F L Pulse Rate 57 L Respiratory Rate 16 Blood Pressure 148/79 H Pulse Oximetry 99 Oxygen Delivery Intake/Output Intake/Output: Intake & Output 12/01/21 12/02/21 12/03/21 12/04/21 23:59 23:59 23:59 23:59 Intake Total 5110 3390 4630 1640 Balance 5110 3390 4630 1640 Meds/Results Medications: Active Medications Generic Name Dose Route Start Last Admin Trade Name Freq PRN Reason Stop Dose Admin Acetaminophen 650 mg 12/02/21 16:27 Acetaminophen 325 Mg Tablet PO Q6H PRN Pain or Fever Atorvastatin Calcium 20 mg 12/01/21 09:00 12/04/21 09:35 Atorvastatin 20 Mg Tablet BY MOUTH 20 mg DAILY BRAN Administration Cholestyramine Resin 4 gm 12/01/21 09:00 12/04/21 09:35 Cholestyramine Light 4 Gm Powd.Pack PO 4 gm DAILY BRAN Administration Gabapentin 600 mg 11/30/21 22:45 12/04/21 09:35 Gabapentin 300 Mg Capsule PO 600 mg BID BRAN Administration Losartan Potassium 50 mg 12/03/21 09:00 12/04/21 09:35 Losartan Potassium 50 Mg Tablet
[2021-12-04 13:44] VITALS: BP 136/76; PULSE 99; RESP 16; TEMP 36.4; O2SAT 99
[2021-12-04] MEDS: MAGNESIUM OXIDE 400 MG TABLET PO (15:26)
[2021-12-04] MEDS: ENOXAPARIN 40 MG/0.4 ML SYRINGE SUB-Q (15:26)
[2021-12-04] MEDS: FIDAXOMICIN 200 MG TABLET PO (21:11)
[2021-12-04 22:00] VITALS: BP 150/83; PULSE 55; RESP 14; TEMP 36.2; O2SAT 100
[2021-12-04 22:29] VITALS: O2SAT 99
[2021-12-05] MEDS: VANCOMYCIN ORAL 125 MG/2.5 ML SYRUP PO ×5 (00:57→23:54)
[2021-12-05 06:00] VITALS: BP 110/63; PULSE 62; RESP 14; TEMP 36.1; O2SAT 97
[2021-12-05 07:09] LABS: Anion Gap 5 mmol/L (8-16); Blood Urea Nitrogen 10 mg/dL (9-20); Calcium 7.7 mg/dL (8.4-10.2); Carbon Dioxide 27 mmol/L (22-30); Chloride 105 mmol/L (98-107); Estimated CRCL calculation 64 ml/min; Estimated Glomerular Filt Rate > 60; Glucose 122 mg/dL (65-110); Magnesium 1.9 mg/dL (1.6-2.3); Potassium 3.2 mmol/L (3.4-5.0); Sodium 137 mmol/L (137-145)
[2021-12-05 08:00] VITALS: PULSE 59; RESP 18; O2SAT 99
[2021-12-05] MEDS: POTASSIUM CHLORIDE 20 MEQ TABLET PO (08:31)
[2021-12-05] MEDS: MAGNESIUM OXIDE 400 MG TABLET PO (08:31)
[2021-12-05] MEDS: SACCHAROMYCES BOULARDII 250 MG CAPSULE PO ×2 (08:31→16:40)
[2021-12-05] MEDS: ATORVASTATIN 20 MG TABLET BY MOUTH (08:31)
[2021-12-05] MEDS: FIDAXOMICIN 200 MG TABLET PO ×2 (08:32→20:21)
[2021-12-05] MEDS: POTASSIUM CHLORIDE 20 MEQ TABLET.ER 40 MEQ PO ×3 (08:32→16:40)
[2021-12-05] MEDS: LOSARTAN POTASSIUM 50 MG TABLET PO (08:32)
[2021-12-05] MEDS: ENOXAPARIN 40 MG/0.4 ML SYRINGE SUB-Q (08:32)
[2021-12-05] MEDS: CHOLESTYRAMINE LIGHT 4 GM POWD.PACK PO (08:32)
[2021-12-05] MEDS: GABAPENTIN 300 MG CAPSULE 600 MG PO ×2 (08:32→16:39)
[2021-12-05] MEDS: OPTI-GEN TAB 1 TABLET PO (08:33)
--- NOTE | 2021-12-05 09:38 | PM.IMPN ---
Progress Note: A&P Assessment and Plan (1) C. difficile colitis: Code(s): A04.72 - Enterocolitis due to Clostridium difficile, not specified as recurrent Status: Acute (2) Acute hyponatremia: Code(s): E87.1 - Hypo-osmolality and hyponatremia Status: Acute (3) Acute hypokalemia: Code(s): E87.6 - Hypokalemia Status: Acute (4) GUSTABO (acute kidney injury): Code(s): N17.9 - Acute kidney failure, unspecified Status: Acute (5) Hx of multiple myeloma: Code(s): Z85.79 - Personal history of other malignant neoplasms of lymphoid, hematopoietic and related tissues Status: Acute (6) Essential (primary) hypertension: Code(s): I10 - Essential (primary) hypertension Status: Acute (7) Benign prostatic hyperplasia without lower urinary tract symptoms: Code(s): N40.0 - Benign prostatic hyperplasia without lower urinary tract symptoms Status: Acute Plan Patient presents with complaints of diarrhea. CT the abdomen and pelvis shows diffuse severe thickening colon with mucosal edema consistent with colitis is also innumerable lytic lesions throughout the visualized osseous structures suspicious for metastatic disease versus myeloma. Patient does have a history of multiple myeloma. Stool studies were negative except for stools positive for C diff toxin. Was on vancomycin orally but still having elevated stool output. His diet was advanced to regular. No abd pain and White count normal. He was switched to fidaxomicin since higher rates of sustained response and fewer recurrence specially since patient is immunosuppressed. Continue oral Vanco today for double coverage. Diarrhea is better but monitor for today. Spoke with Dr Calloway who recommended continuing to hold the Revlimid and up to at least 1 week after discharge. Will have patient follow up with Oncology after discharge. DVT Prophylaxis: Lovenox Code status: Full Diet: Regular Subjective Date/time seen: 12/05/21 09:38 Interval history: 61yo male with MM s/p stem cell transplant on immunosuppressive agents here for diarrhea and found to have CDiff colitis. Only 2 stools overnight. No abd pain. Feels well. Eating normally. No n/v. Exam Narrative: AF 96.9 110/63 62 14 97% ra Gen - NARD Chest - CTA bilaterally, nml RR CV - RRR S1/S2 Abd - Soft, NT/ND, Positive BS Ext - no pedal edema Psych - Nml mood and affect Skin - Warm and dry Objective Data Vital Signs Vital Signs: Vital Signs - 24 hr 12/04/21 13:44 12/04/21 22:00 12/04/21 20:00 Temperature 97.5 F L 97.1 F L Pulse Rate 99 55 L Respiratory Rate 16 14 Blood Pressure 136/76 150/83 H Pulse Oximetry 99 100 Oxygen Delivery Room Air 12/04/21 22:29 12/05/21 06:00 Temperature 96.9 F L Pulse Rate 62 Respiratory Rate 14 Blood Pressure 110/63 Pulse Oximetry 99 97 Oxygen Delivery Room Air Intake/Output Intake/Output: Intake & Output 12/02/21 12/03/21 12/04/21 12/05/21 23:59 23:59 23:59 23:59 Intake Total 3390 4630 3460 970 Balance 3390 4630 3460 970 Meds/Results Medications: Active Medications Generic Name Dose Route Start Last Admin Trade Name Freq PRN Reason Stop Dose Admin Acetaminophen 650 mg 12/02/21 16:27 Acetaminophen 325 Mg Tablet PO Q6H PRN Pain or Fever Atorvastatin Calcium 20 mg 12/01/21 09:00 12/05/21 08:31 Atorvastatin 20 Mg Tablet BY MOUTH 20 mg DAILY BRAN Administration Cholestyramine Resin 4 gm 12/01/21 09:00 12/05/21 08:32 Cholestyramine Light 4 Gm Powd.Pack PO 4 gm DAILY BRAN Administration Enoxaparin Sodium 40 mg 12/05/21 09:00 12/05/21 08:32 Enoxaparin 40 Mg/0.4 Ml Syringe SUB-Q 40 mg DAILY BRAN Administration Fidaxomicin 200 mg 12/04/21 21:00 12/05/21 08:32 Fidaxomicin 200 Mg Tablet PO 200 mg Q12HR BRAN Administration Gabapentin 600 mg 11/30/21 22:45 12/05/21 08:32 Gabapentin 300 Mg Capsule PO
[2021-12-05 13:50] VITALS: BP 137/71; PULSE 59; RESP 18; TEMP 35.9; O2SAT 99
--- NOTE | 2021-12-05 14:57 | PC.NURSE ---
pt report loose stool continues this shift.
[2021-12-05 21:25] VITALS: BP 125/65; PULSE 58; RESP 14; TEMP 36.6; O2SAT 98
[2021-12-06 05:52] VITALS: BP 142/70; PULSE 56; RESP 16; TEMP 36.3; O2SAT 97
[2021-12-06] MEDS: VANCOMYCIN ORAL 125 MG/2.5 ML SYRUP PO ×3 (06:32→16:53)
[2021-12-06 06:48] LABS: Anion Gap 5 mmol/L (8-16); Blood Urea Nitrogen 13 mg/dL (9-20); Carbon Dioxide 23 mmol/L (22-30); Chloride 106 mmol/L (98-107); Estimated CRCL calculation 69 ml/min; Estimated Glomerular Filt Rate > 60; Glucose 122 mg/dL (65-110); Magnesium 1.8 mg/dL (1.6-2.3); Potassium 3.2 mmol/L (3.4-5.0); Sodium 134 mmol/L (137-145)
[2021-12-06] MEDS: MAGNESIUM SULF 2 GM/WATER 50ML 2 GM/50 ML BAG IVPB (08:22)
[2021-12-06] MEDS: ENOXAPARIN 40 MG/0.4 ML SYRINGE SUB-Q (08:24)
[2021-12-06] MEDS: POTASSIUM CHLORIDE 20 MEQ TABLET.ER 40 MEQ PO ×3 (08:24→16:53)
[2021-12-06] MEDS: POTASSIUM CHLORIDE 20 MEQ TABLET PO (08:24)
[2021-12-06] MEDS: CHOLESTYRAMINE LIGHT 4 GM POWD.PACK PO (08:24)
[2021-12-06] MEDS: FIDAXOMICIN 200 MG TABLET PO (08:25)
[2021-12-06] MEDS: GABAPENTIN 300 MG CAPSULE 600 MG PO ×2 (08:25→16:53)
[2021-12-06] MEDS: LOSARTAN POTASSIUM 50 MG TABLET PO (08:25)
[2021-12-06] MEDS: OPTI-GEN TAB 1 TABLET PO (08:25)
[2021-12-06] MEDS: MAGNESIUM OXIDE 400 MG TABLET PO (08:25)
[2021-12-06] MEDS: ATORVASTATIN 20 MG TABLET BY MOUTH (08:25)
[2021-12-06] MEDS: SACCHAROMYCES BOULARDII 250 MG CAPSULE PO ×2 (08:25→16:53)
[2021-12-06 12:25] VITALS: BMI 31.4
--- NOTE | 2021-12-06 12:55 | PCNSR ---
On 12/06/21, the student, Meghana Oro, provided care and completed [facility] documentation on this patient. I have reviewed the student's documentation and agree with the findings.
[2021-12-06 13:45] VITALS: BP 132/83; PULSE 64; RESP 20; TEMP 36.3; O2SAT 100
--- NOTE | 2021-12-06 16:24 | PM.DS ---
DS: Admitting Diagnosis Discharge Date 12/06/21 Admitting Diagnosis Diarrhea DS: Discharge Diagnosis Discharge Diagnosis (1) C. difficile colitis: Code(s): A04.72 - Enterocolitis due to Clostridium difficile, not specified as recurrent Status: Acute (2) Acute hyponatremia: Code(s): E87.1 - Hypo-osmolality and hyponatremia Status: Acute (3) Acute hypokalemia: Code(s): E87.6 - Hypokalemia Status: Acute (4) GUSTABO (acute kidney injury): Code(s): N17.9 - Acute kidney failure, unspecified Status: Acute (5) Hx of multiple myeloma: Code(s): Z85.79 - Personal history of other malignant neoplasms of lymphoid, hematopoietic and related tissues Status: Acute (6) Essential (primary) hypertension: Code(s): I10 - Essential (primary) hypertension Status: Acute (7) Benign prostatic hyperplasia without lower urinary tract symptoms: Code(s): N40.0 - Benign prostatic hyperplasia without lower urinary tract symptoms Status: Acute DS: Summary Hospital Course Reason for hospitalization: 61yo male with MM s/p stem cell transplant on immunosuppressive agents here for diarrhea and found to have CDiff colitis. Please see H&P for details. Hospital Course: Patient presents with complaints of diarrhea. CT the abdomen and pelvis shows diffuse severe thickening colon with mucosal edema consistent with colitis is also innumerable lytic lesions throughout the visualized osseous structures suspicious for metastatic disease versus myeloma. Patient does have a history of multiple myeloma. Stool studies were negative except for stools positive for C diff toxin. Was on vancomycin orally but still having excessive stool output. His diet was advanced to regular. No abd pain and White count normal. He was switched to fidaxomicin since higher rates of sustained response and fewer recurrence specially since patient is immunosuppressed. Diarrhea is better. He does have chronic diarrhea as well. Spoke with Dr Calloway who recommended continuing to hold the Revlimid and up to at least 1 week after discharge. Advised patient NOT to start Revlimid until seen by Oncology. Patient voiced understanding. Also recommended patient take his Questran 6 hours after the morning Fidaxomicin dose. Patient overall did well and was able to be discharged home on 12/06/21 Status at Discharge Cognitive/behavioral status at discharge: Stable Time Spent with Patient Time attestation: Total time spent providing and/or coordinating discharge services: 36 minutes Time spent: Greater than 30 minutes Exam Narrative: AF 97.3 132/83 64 20 100% ra Gen - NARD Chest - CTA bilaterally, nml RR CV - RRR S1/S2 Abd - Soft, NT/ND, Positive BS Ext - no pedal edema Psych - Nml mood and affect Skin - Warm and dry DS: Data Data Completed and Pending Labs on day of discharge: Labs from last 24 hours 12/06/21 06:05 Sodium 134 L Potassium 3.2 L Chloride 106 Carbon Dioxide 23 Anion Gap 5 L BUN 13 Creatinine 1.00 Estim Creat Clear Calc 69 Estimated GFR > 60 Glucose 122 H Calcium 8.0 L Magnesium 1.8 Discharge Plan Discharge Attending physician on discharge: Homero Copeland Discharging Clinician: Homero Copeland Anticipated Discharge Date/Time: 12/06/21 16:32 Patient Disposition: Home, Self-Care Activity: as tolerated Diet: high fiber Discharge Instructions: Please complete your antibiotic course even if you are starting to feel well. Do NOT take your Revlimid unless okay with Oncologist. Take your cholestyramine 6 hours after the fidaxomicin dose. Take precautions to avoid falls. Rise slowly from a lying or sitting position. Pause before standing or walking. Contact your doctor or call 911 and come to the Emergency Room if you have increasing abdominal pain, fevers or other worrisome symptoms. Avoid NSAIDs (ibuprofen, naproxen, Kim
--- NOTE | 2021-12-16 07:31 | PC.NURSE ---
Ova and parasites is negative. Dr. Gan aware.
== END 2021-12-06 17:30 | disposition home or self-care (01) | DRG 372 ==
LOC: ANHED 19:55 → ANH3MEDSUR 20:35
PROVIDERS: Hospitalist; Admitting Provider Internal Medicine; Emergency Provider Emergency Medicine; PCP Internal Medicine; Visit Provider Internal Medicine
DX: A04.72 Enterocolitis due to Clostridium difficile, not specified as recurrent (principal); Z94.84 Stem cells transplant status; D84.89 Other immunodeficiencies; E87.1 Hypo-osmolality and hyponatremia; N17.9 Acute kidney failure, unspecified; Z85.79 Personal history of other malignant neoplasms of lymphoid, hematopoietic and related tissues; Z92.25 Personal history of immunosuppression therapy; Z79.899 Other long term (current) drug therapy; M89.9 Disorder of bone, unspecified; Z20.822 Contact with and (suspected) exposure to COVID-19; E87.6 Hypokalemia; G62.9 Polyneuropathy, unspecified; I10 Essential (primary) hypertension; K52.9 Noninfective gastroenteritis and colitis, unspecified; N40.0 Benign prostatic hyperplasia without lower urinary tract symptoms; R79.89 Other specified abnormal findings of blood chemistry; R60.0 Localized edema; Z28.310 Unvaccinated for COVID-19; Z87.891 Personal history of nicotine dependence
CPT/HCPCS: 36415; 74177; 80048; 80053; 81001; 82274; 83605; 83690; 83735; 85025; 85610; 85730; 86140; 87040; 87045; 87177; 87209; 87269; 87272; 87427; 87493; 89055; 93005; 93970; 96361; 96374; 96375; 99285; A9270; C9803; J1650; J1956; J2270; J2405; J3475; J3480; J7030; J7040; Q9967; U0003; U0005

== ENCOUNTER 2022-05-05 01:30 | Day surgery (SDC) | payer MEDICARE, OTHER, SELFPAY ==
[2022-04-18 13:46] VITALS: BMI 31.4
[2022-05-05 09:28] VITALS: BP 156/84; PULSE 68; RESP 18; TEMP 36.1; O2SAT 68
[2022-05-05] MEDS: LACTATED RINGERS 1,000 ML 150 ML IV CONT (09:39)
--- NOTE | 2022-05-05 09:49 | PM.HPGS ---
History of Present Illness History of Present Illness Consent: Risks, benefits, and alternatives have been discussed and questions answered. Patient agrees to proceed with procedure. Chief complaint: diarrhea Narrative: Jean Carlos Guerrero is a 61 year old male Presents for screening colonoscopy. He states his been more than 10 years since last colonoscopy. Patient recently had bout of diarrhea. Ultimately found to be attributed to C difficile infection. This is now been treated. Patient states his been several weeks since he had any diarrhea stools. Patient does continue to take Imodium and colestipol, having not been told to discontinue these. Review of Systems Review of Systems: Review of systems noncontributory. [facility] Past Medical History Medical History Hx of multiple myeloma Screening for colon cancer Family History Family History Father Patient's father is in good health Sibling Patient's brother is in good health Family history of elevated blood lipids Mother Acute myocardial infarction, Onset Age: 72 Patient's mother is Social History Social History (Updated 03/14/22 @ 14:43 by Anne Xiong MA) Smoking status: Never smoker Tobacco type: cigars Second hand tobacco smoke exposure: No Smoking end date: 04/20/09 Alcohol intake: former Substance use: never Substance use type: does not use Lack of Transportation: No Lack of Food: Never True Current Housing: I Have Housing Concerned About Future Housing: No Difficulty Paying Gas/Electric Bills: No Difficulty Paying for Meds: No Currently Unemployed: No Education: High School Diploma/GED Difficulty w/ Childcare or Family Care: No Living arrangements: with family Spiritual care concerns: No Meds Home Medications and Allergies Home Medications Medication Instructions Recorded Confirmed Type gabapentin 600 mg tablet 600 mg PO BID 02/14/19 04/18/22 History lmxazysc-usr-ljapp acid 300 1 tablet PO DAILY 09/14/20 04/18/22 History mcg-lycopene 600 mcg-lutein 300 mcg tablet (Centrum Silver Men) sodium,potassium,mag sulfates 17.5 See Rx Instructions PO .COMPLEX 03/25/22 Rx gram-3.13 gram-1.6 gram oral soln #354 mL (Suprep Bowel Prep Kit) losartan 100 mg tablet 100 mg PO DAILY #90 tabs 04/07/22 04/18/22 Rx atorvastatin 20 mg tablet 20 mg PO DAILY 04/18/22 04/18/22 History colestipol 1 gram tablet 1 g PO BID 04/18/22 04/18/22 History hydrochlorothiazide 25 mg tablet 25 mg PO DAILY 04/18/22 04/18/22 History potassium chloride 10 mEq 20 meq PO DAILY 04/18/22 04/18/22 History capsule,extended release Allergies Allergy/AdvReac Type Severity Reaction Status Date / Time No Known Drug Allergies Allergy Unknown Unknown Verified 05/05/22 09:27 Vital Signs Vital Signs - 24 hr 05/05/22 09:28 Temperature 97.0 F L Pulse Rate 68 Respiratory Rate 18 Blood Pressure 156/84 H Pulse Oximetry 68 L Oxygen Delivery Room Air Exam Narrative: Physical exam reveals patient to be alert. Vital signs stable. HEENT exam is unremarkable. Patient is anicteric. Lungs are clear to auscultation and percussion. Heart is without murmur or extra sounds. Abdomen bowel sounds are present soft nontender with no organomegaly. Digital external rectal exam is normal. Assessment and Plan Assessment and plan (1) C. difficile colitis: Code(s): A04.72 - Enterocolitis due to Clostridium difficile, not specified as recurrent Status: Acute Assessment and Plan: Patient with a history of C difficile diarrhea. This is now improved after treatment with antibiotics. Patient no longer requires the Imodium 80 which can be discontinued. Colestipol also can be discontinued. The should only be taken p.r.n. at this point. High-fiber diet add courage. Patient may benefit
--- NOTE | 2022-05-05 10:30 | WPDANESEPPF ---
Anes - Initial Pre Proc Eval Procedure: Operation Date: 05/05/22 10:45 Proposed Procedures p Colonoscopy - Santo Cantu MD Date/Time: 05/05/22 10:30 Surgeon: Santo Cantu MD Pre Op Diagnosis: diarrhea Patient Data Age: 61 Gender: M Height: 1.68 m Weight: 87.8 kg Last Vital Signs Temp 97.0 F L 05/05/22 09:28 Pulse 68 05/05/22 09:28 Resp 18 05/05/22 09:28 BP 156/84 H 05/05/22 09:28 Pulse Ox 68 L 05/05/22 09:28 O2 Del Method Room Air 05/05/22 09:28 Allergies Allergy/AdvReac Type Severity Reaction Status Date / Time No Known Drug Allergies Allergy Unknown Unknown Verified 05/05/22 09:27 Home Medications Medication Instructions Recorded Confirmed Type gabapentin 600 mg tablet 600 mg PO BID 02/14/19 04/18/22 History wlbtsnku-jxl-vcvtc acid 300 1 tablet PO DAILY 09/14/20 04/18/22 History mcg-lycopene 600 mcg-lutein 300 mcg tablet (Centrum Silver Men) sodium,potassium,mag sulfates 17.5 See Rx Instructions PO .COMPLEX 03/25/22 Rx gram-3.13 gram-1.6 gram oral soln #354 mL (Suprep Bowel Prep Kit) losartan 100 mg tablet 100 mg PO DAILY #90 tabs 04/07/22 04/18/22 Rx atorvastatin 20 mg tablet 20 mg PO DAILY 04/18/22 04/18/22 History colestipol 1 gram tablet 1 g PO BID 04/18/22 04/18/22 History hydrochlorothiazide 25 mg tablet 25 mg PO DAILY 04/18/22 04/18/22 History potassium chloride 10 mEq 20 meq PO DAILY 04/18/22 04/18/22 History capsule,extended release Patient hx anesthesia problems: none Family hx anesthesia problems: none Results Review: All pre-operative results and documents have been reviewed as part of the pre-operative evaluation. [facility] Past Medical History Medical History Hx of multiple myeloma Screening for colon cancer Family History Family History Father Patient's father is in good health Sibling Patient's brother is in good health Family history of elevated blood lipids Mother Acute myocardial infarction, Onset Age: 72 Patient's mother is Social History Social History (Updated 03/14/22 @ 14:43 by Anne Xiong MA) Smoking status: Never smoker Tobacco type: cigars Second hand tobacco smoke exposure: No Smoking end date: 04/20/09 Alcohol intake: former Substance use: never Substance use type: does not use Lack of Transportation: No Lack of Food: Never True Current Housing: I Have Housing Concerned About Future Housing: No Difficulty Paying Gas/Electric Bills: No Difficulty Paying for Meds: No Currently Unemployed: No Education: High School Diploma/GED Difficulty w/ Childcare or Family Care: No Living arrangements: with family Spiritual care concerns: No Anes - Eval Final PreProcedure Day of Procedure 05/05/22 10:30 Patient weight: obese Heart: regular rate and rhythm Lungs: clear to auscultation Airway: Mallampati scale class II Neurological: alert and oriented Last oral intake: >/= 8 hours ASA classification: III Emergent: no Anesthetic plan: proceed Anesthesia type and monitoring: general GIVS and standard monitoring Results Review: All pre-operative results and documents have been reviewed as part of the pre-operative evaluation. Informed Consent: The patient's anesthetic plan and its attendant risks and benefits were discussed with the patient/family/POA. Questions were solicited and answers provided to the satisfaction of the patient/family/POA.
[2022-05-05 10:50] VITALS: BP 121/68; PULSE 63; RESP 18; O2SAT 97
[2022-05-05 11:00] VITALS: BP 114/69; PULSE 60; RESP 18; O2SAT 98
[2022-05-05 11:08] VITALS: BP 128/71; PULSE 60; RESP 18; O2SAT 98
== END 2022-05-05 11:24 | disposition home or self-care (01) ==
PROVIDERS: PCP Internal Medicine; Visit Provider Internal Medicine Gastroenterology
PROC: 0DJD8ZZ Inspection of Lower Intestinal Tract, Via Natural or Artificial Opening Endoscopic (ICD-10-PCS; CPT 45378; principal; 2022-05-05 10:45)
DX: Z12.11 Encounter for screening for malignant neoplasm of colon (principal); Z87.891 Personal history of nicotine dependence; E66.9 Obesity, unspecified; Z68.31 Body mass index [BMI] 31.0-31.9, adult; Z87.19 Personal history of other diseases of the digestive system
CPT/HCPCS: G0121; J2704; J7120

== ENCOUNTER 2022-09-11 09:24 | Outpatient (CLI) | payer MEDICARE, OTHER, SELFPAY ==
[2022-09-11 10:43] LABS: Alanine Aminotransferase 56 U/L (6-50); Albumin Level 4.3 g/dL (3.5-5.1); Alkaline Phosphatase 81 U/L (38-126); Anion Gap 8 mmol/L (8-16); Aspartate Amino Transferase 41 U/L (17-59); Bilirubin,Total 1.8 mg/dL (0.2-1.3); Blood Urea Nitrogen 15 mg/dL (9-20); Calcium 8.9 mg/dL (8.4-10.2); Carbon Dioxide 29 mmol/L (22-30); Chloride 100 mmol/L (98-107); Cholesterol 108 mg/dL (0-200); Estimated Glomerular Filt Rate > 60; Glucose 131 mg/dL (65-110); HDL Direct 52 mg/dL; Potassium 3.3 mmol/L (3.4-5.0); Sodium 137 mmol/L (137-145); Triglycerides 75 mg/dL (<150)
[2022-09-11 10:54] LABS: LDL Cholesterol Direct 41 mg/dL
== END 2022-09-11 09:25 | disposition home or self-care (01) ==
LOC: ANHLAB 09:27
PROVIDERS: PCP Family Medicine; Visit Provider Family Medicine
DX: E78.5 Hyperlipidemia, unspecified (principal); I10 Essential (primary) hypertension; R73.03 Prediabetes; Z51.81 Encounter for therapeutic drug level monitoring
CPT/HCPCS: 36415; 80053; 80061; 83036

== ENCOUNTER 2023-09-04 08:03 | Outpatient (CLI) | payer MEDICARE, OTHER, SELFPAY ==
[2023-09-04 08:38] LABS: Basophils Absolute Auto 0.1 K/mm3 (0.0-0.1); Basophils Percent Auto 2.7 % (0.2-1.2); Eosinophils Absolute Auto 0.1 K/mm3 (0-0.3); Eosinophils Percent Auto 3.5 % (0-4.4); Hematocrit 45.8 % (42.0-52.0); Hemoglobin 16.3 g/dL (14.0-18.0); Immature Granulocyte Absolute 0.02 K/mm3 (0.00-0.031); Immature Granulocyte Percent A 0.5 % (0-0.5); Immature Platelet Fraction Pct 8.8 % (0.9-11.2); Lymphocytes Percent Auto 29.3 % (18.3-44.2); Mean Corpuscular HGB Conc 35.6 g/dl (32-36); Mean Corpuscular Hemoglobin 32.5 pg (26-34); Mean Corpuscular Volume 91.2 fl (80-100); Mean Platelet Volume 11.3 fl (7.4-10.4); Monocytes Absolute Auto 0.7 K/mm3 (0.1-0.6); Monocytes Percent Auto 17.8 % (2.6-8.5); Neutrophils Absolute Auto 1.7 K/mm3 (1.3-6.7); Neutrophils Percent Auto 46.2 % (45.5-73.1); Platelet Count Result 107 k/mm3 (150-375); Red Blood Count 5.02 M/mm3 (4.6-6.20); Red Cell Distribution Width 13.3 % (11.5-14.5); White Blood Count 3.8 K/mm3 (4.5-10.0)
[2023-09-04 08:44] LABS: Alanine Aminotransferase 41 U/L (6-50); Albumin Level 4.4 g/dL (3.5-5.1); Alkaline Phosphatase 79 U/L (38-126); Anion Gap 5 mmol/L (4-12); Aspartate Amino Transferase 34 U/L (17-59); Bilirubin,Total 1.8 mg/dL (0.2-1.3); Blood Urea Nitrogen 17 mg/dL (9-20); Calcium 8.9 mg/dL (8.4-10.2); Carbon Dioxide 28 mmol/L (22-30); Chloride 101 mmol/L (98-107); Cholesterol 111 mg/dL (0-200); Estimated Glomerular Filt Rate > 60; Glucose 145 mg/dL (65-110); HDL Direct 49 mg/dL; Potassium 3.3 mmol/L (3.4-5.0); Sodium 134 mmol/L (137-145); Triglycerides 108 mg/dL (<150)
[2023-09-04 08:55] LABS: LDL Cholesterol Direct 54 mg/dL
[2023-09-04 09:15] LABS: Prostate Specific Antigen 1.9 ng/mL (< OR = 4.0)
[2023-09-04 09:33] LABS: Hemoglobin A1C 6.2 % (<5.7)
== END 2023-09-04 08:04 | disposition home or self-care (01) ==
LOC: ANHLAB 08:05
PROVIDERS: PCP Family Medicine; Visit Provider Nurse Practitioner Family
DX: Z12.5 Encounter for screening for malignant neoplasm of prostate (principal); R73.03 Prediabetes; E78.5 Hyperlipidemia, unspecified; Z13.228 Encounter for screening for other metabolic disorders; E66.3 Overweight; Z13.0 Encounter for screening for diseases of the blood and blood-forming organs and certain disorders involving the immune mechanism
CPT/HCPCS: 36415; 80053; 80061; 83036; 84153; 85025; 85055; G0103